=== PATIENT | female | born 1970 | race Caucasian/White ===

== ENCOUNTER 2025-04-07 11:44 | Outpatient (AMB) | payer OTHER, SELFPAY ==
--- NOTE | 2025-04-07 12:01 | A.OFFPC_ITS ---
Vital Signs 04/07/25 12:10 Height 5 ft 4 in Weight 311 lb BMI 53.4 BP 124/66 Blood Pressure Location Rt brachial Position Sitting Respiration 15 Pulse 81 Pulse Source Pulse Oximeter Temp 98.1 F Temp Source Oral Pulse Oximetry (%) 100 Intake Visit Reasons: [employer] to est care Intake Note: Pt is here today as a New Patient to est care concern on b/p was b/p med before and her wgt Allergies No Known Allergies Allergy (Verified 04/12/25 01:41) Medication List - Last Reconciled 04/12/25 by Brooke Patino MD No Known Home Meds Tobacco use date assessed: 04/07/25 Dental Screening Dental Screen Date: 04/07/25 Did you have a dental visit in the last 12 months?: Yes Did you have a dental problem in the last 6 months where you did not have access to dental care?: No Was dental information given to patient?: Patient has dentist HPI [employer] to est care HPI Details 55-year-old lady new to practice, here t o establish care with a PCP and for physical exam. History of COVID last year, has lost some of her sense of smell and taste. Complains of frequent hot flashes and mood swings. Has not had a menstrual cycle now for more than a year.. Overdue for her screening mammogram and cervical cancer screening. Has not yet had a colon cancer screening done. No family history of colon cancer [facility] Medical History (Updated 04/07/25 @ 13:00 by Brooke Patino MD) Morbid obesity Menopausal vasomotor syndrome History of COVID-19 Surgical History (Updated 04/07/25 @ 12:39 by Brooke Patino MD) History of reduction surgery of right breast Hx laparoscopic cholecystectomy Family History (Updated 04/07/25 @ 12:47 by Brooke Patino MD) Mother COPD (chronic obstructive pulmonary disease) Thyroid disorder Rheumatoid arthritis Maternal Grandfather Diabetes mellitus Maternal Grandmother Diabetes mellitus Social History Housing: Apartment Patient Tobacco Use Status: Former Tobacco user e-Cigarette/Vaping Use: Never Used service: No Current occupational status: employed Current occupational exposures/hazards: No Cognitive needs: No Hearing needs: No Vision needs: Yes Questionnaire PHQ-9 Over the last 2 weeks, how often have you been bothered by any of the following problems? 1. Little interest or pleasure in doing things: not at all 2. Feeling down, depressed, or hopeless: not at all 3. Trouble falling or staying asleep, or sleeping too much: not at all 4. Feeling tired or having little energy: several days 5. Poor appetite or overeating: several days 6. Feeling bad about yourself - or that you are a failure or have let yourself or your family down: not at all 7. Trouble concentrating on things, such as reading the newspaper or watching television: not at all 8. Moving or speaking so slowly that other people could have noticed. Or the opposite - being so fidgety or restless that you have been moving around a lot more than usual: not at all 9. Thoughts that you would be better off or of hurting yourself in some way: not at all Total score: 2 Depression Screening Interpretation: Negative Depression Screening Done: Yes 95182 - PHQ-9 Billing: Yes Source: Developed by Drs. Jr Westbrook, Otilia Lindsey, David Wong and colleagues, with an educational kristin from [employer]. Thrive Questionnaire Date Thrive assessed: 03/31/25 I am a: Patient What is your living situation today?: I have a steady place to live Within the past 12 months, did the food you bought not last and you didn't have the money to get more?: Never true Within the past 12 months, did you worry whether your food would run out before you got money to buy more?: Never true Do you have trouble paying for medicines?: No Do you have trouble getting transportation to medical appointments?: No Do you have trouble paying your heating and electricity bill?: No Do you have trouble taking care of your child, family member or friend?: No Do you have trouble with day-to-day activities such as bathing, preparing meals, shopping, managing finances, etc.?: No Are you currently unemployed and looking for a job?: No Are you interested in more education?: No Please select the resources that you would like help with: None Currently or been in a relationship where the following occur: No concerns reported THRIVE Score: 0 AUDIT C Alcohol Use Questionnaire (AUDIT-C) 1. How often do you have a drink containing alcohol?: Monthly or less 2. How many drinks containing alcohol do you have on a typical day when you are drinking?: 1 or 2 3. How often do you have six or more drinks on one occasion?: Never Total Score: 1 Score Reviewed/Action Taken: Yes SISI-7 AMB Questionnaire SISI-7 Date SISI - 7 assessed: 04/07/25 Feeling nervous, anxious, or on edge: 0 = Not at all Not being able to stop or control worryin = Not at all Worrying too much about different things: 0 = Not at all Trouble relaxin = Not at all Being so restless that it is hard to sit still: 0 = Not at all Becoming easily annoyed or irritable: 0 = Not at all Feeling afraid as if something awful might happen: 0 = Not at all Total SISI-7 score (0-4 normal; 5-9 mild; 10-14 moderate; 15-21 severe): 0 Source: Developed by Drs. Jr Westbrook, Otilia Lindsey, David Wong and colleagues, with an educational kristin from [employer]. SISI-7 Assessment Billing SISI-7 Assessment Tool: SISI-7 Assessment 97854 Review of Systems Const Denies body aches, Denies fatigue, Denies fever(s), Denies headache(s) and Denies weakness Eyes Denies change in vision, Denies eye discharge and Denies itchy eyes ENT Denies dizziness, Denies headache(s), Denies nasal congestion, Denies nasal discharge and Denies sore throat Card Denies chest pain, Denies lightheadedness, Denies palpitations and Denies dyspnea Resp Denies chest congestion, Denies cough, Denies dyspnea and Denies wheezing GI Denies abdominal pain, Denies change in bowel habits and Denies heartburn Denies hematuria, Denies urinary frequency, Denies dysuria and Denies urinary urgency Musc Reports no additional complaints Skin/Breast Denies breast pain, Denies breast mass, Denies lesions and Denies rash Neuro Denies dizziness, Denies headache(s) and Denies weakness Psych Reports no additional complaints Endo Denies fatigue, Denies polydipsia, Denies polyuria and Denies palpitations Grupo/Lymph Denies easy bruising Aller/Immun Denies itchy eyes, Denies seasonal rhinorrhea and Denies wheezing Physical exam (Primary Care) Vital Signs: Last Vital Signs Temp 98.1 F 04/07/25 12:10 Pulse 81 04/07/25 12:10 Resp 15 04/07/25 12:10 BP 124/66 04/07/25 12:10 Pulse Ox 100 04/07/25 12:10 BMI result Body Mass Index 53.4 Tobacco/Smoking Status: Tobacco use Status Tobacco use date assessed 04/07/25 04/07/25 12:14 Patient Tobacco Use Status Former Tobacco user 04/07/25 12:14 e-Cigarette/Vaping Use Never Used 04/07/25 12:14 PHQ-9: PHQ-9 Score PHQ-9: Total score 2 04/07/25 12:41 Depression Screening Interpretation: Negative Thrive Assessment: Date of Thrive Assessment Date Thrive assessed 03/31/25 04/07/25 12:01 Currently or been in a relationship where the following occur: No concerns reported Const General: no acute distress and alert Nutritional Appearance: obese morbidly obese Orientation/consciousness: patient oriented x3 HENMT Head: Yes normocephalic Ears: external ears normal, TM's normal bilaterally and EAC's normal General nose exam: Normal external nose present Face and sinus: Yes face symmetric Mouth: Normal oral and palatal mucosa present and moist mucous membranes Eyes General: appearance normal, both eyes and all related structures Eyelids: Yes eyelids normal Conjunctivae: conjunctivae normal Sclerae: sclerae normal Pupils: Equal, round and reactive pupils present EOM: EOMs intact bilaterally Neck Neck: Yes full ROM, Yes no lymphadenopathy and Yes supple Thyroid: Thyroid normal Resp Effort & Inspection: normal respiratory effort and able to speak in complete sentences Auscultation: clear to auscultation bilaterally Cardio Rate: regular rate Rhythm: regular rhythm Heart sounds: S1 normal heart sound present and S2 normal heart sound present GI Palpation (GI): Soft to palpation, nontender, no guarding and no masses Auscultation: normal bowel sounds General: Yes no CVA tenderness Back/Spine/Pelvis Back: no CVA tenderness and No back tenderness Skin General skin exam: no rashes or lesions noted Neuro General: patient oriented x3, gait normal, moves all extremities and no focal motor deficits Cranial nerves: Yes Equal, round and reactive pupils present Cognition (Neuro): normal cognition Gait exam (Neuro): Normal gait present Extrem General: Yes normal to inspection, Yes full ROM, Yes no joint enlargement, Yes no pedal edema and Yes normal gait Psych Appearance: grossly normal and well kempt Mental Status: mental status grossly normal Speech and movement: Normal speech and movement present Affect: normal affect Coding Level of Care Code New Pt Prev Care 40-64y(60243) Diagnoses Annual visit for general adult medical examination with abnormal findings Z00.01 Screening for malignant neoplasm of cervix Z12.4 Vasomotor symptoms due to menopause N95.1 Morbid obesity E66.01 Long COVID U09.9 Advance directive discussed with patient Z71.89 Additional Codes SISI-7 Assessment Billing - SISI-7 Assessment Tool: SISI-7 Assessment 36730 ([id number]) PHQ-9 - 72690 - PHQ-9 Billing: Yes ([id number]) Assessment & Plan Assessment & Plan (1) Annual visit for general adult medical examination with abnormal findings: Code(s): Z00.01 - Encounter for general adult medical examination with abnormal findings Plan: Will check appropriate labs. Recommended dental visit every 6 months and regular eye exams, at least every 2 years. Take adequate calcium in diet and vitamin-D 3 at 2000 IU per cap once a day, in addition to weight-bearing exercises to help maintain good muscle tone and weight control. Instructed to do self-breast exam, and recommended to get yearly mammogram, mammogram ordered. Referred to [facility] for routine Pap and pelvic exam. Cologuard ordered for colon cancer screening. Reminded to get Tdap and flu vaccine as well as COVID booster but patient does not want to get any vaccines on this visit. (2) Screening for malignant neoplasm of cervix: Code(s): Z12.4 - Encounter for screening for malignant neoplasm of cervix Plan: Referred to [facility] for routine Pap and pelvic exam (3) Vasomotor symptoms due to menopause: Code(s): N95.1 - Menopausal and female climacteric states Category: Medical Plan: She experiences significant hot flashes and sleep disturbances. Hormone levels will be checked to confirm menopause status, and low-dose hormone therapy may be considered if symptoms are severe, with a discussion of associated risks (4) Morbid obesity: Code(s): E66.01 - Morbid (severe) obesity due to excess calories Category: Medical Plan: Recommended focusing on improving health instead of dieting. Mediterranean diet is a healthy diet that helps, limit food high in fat, sugar, and calories. Eat slowly, pay attention to portion sizes, plan your meals ahead of time, referral to ferryboat operator ordered. start regular physical activity, at least 150 minutes of moderate intensity exercise, or 90 minutes per week of vigorous exercise. (5) Long COVID: Code(s): U09.9 - Post COVID-19 condition, unspecified Plan: The patient has experienced loss of taste and smell since a COVID-19 infection in August 2023. No specific treatment is available, and the prognosis for recovery of these senses remains uncertain. (6) Advance directive discussed with patient: Code(s): Z71.89 - Other specified counseling Plan: Initiated the conversation about Advanced Directives. Advanced Directives help patients prepare for current and future decisions about their medical treatment and place of care. Discussed with patient that it is a process where a patients current condition and prognosis are reviewed, their wishes for information regarding their illness are elicited, and likely medical dilemmas are presented and options discussed. Healthcare proxy form completed today. The form can be amended as needed, reviewed yearly and make changes as needed Orders: Orders Basic Metabolic Panel Fasting 04/10/25 N95.1 - Menopausal and female climacteric states, Z00.01 - Encounter for general adult medical examination with abnormal findings, Z13.1 - Encounter for screening for diabetes mellitus, Z13.220 - Encounter for screening for lipoid disorders, Z83.49 - Family history of other endocrine, nutritional and metabolic diseases Aspartate Amino Transferase 04/10/25 N95.1 - Menopausal and female climacteric states, Z00.01 - Encounter for general adult medical examination with abnormal findings, Z13.1 - Encounter for screening for diabetes mellitus, Z13.220 - Encounter for screening for lipoid disorders, Z83.49 - Family history of other endocrine, nutritional and metabolic diseases Complete Blood Count Auto Diff 04/10/25 N95.1 - Menopausal and female climacteric states, Z00.01 - Encounter for general adult medical examination with abnormal findings, Z13.1 - Encounter for screening for diabetes mellitus, Z13.220 - Encounter for screening for lipoid disorders, Z83.49 - Family history of other endocrine, nutritional and metabolic diseases Vitamin D 25-OH Total 04/10/25 N95.1 - Menopausal and female climacteric states, Z00.01 - Encounter for general adult medical examination with abnormal findings, Z13.1 - Encounter for screening for diabetes mellitus, Z13.220 - Encounter for screening for lipoid disorders, Z83.49 - Family history of other endocrine, nutritional and metabolic diseases TSH reflex Free T4 04/10/25 N95.1 - Menopausal and female climacteric states, Z00.01 - Encounter for general adult medical examination with abnormal findings, Z13.1 - Encounter for screening for diabetes mellitus, Z13.220 - Encounter for screening for lipoid disorders, Z83.49 - Family history of other endocrine, nutritional and metabolic diseases Estradiol Ultra Sensitive 04/10/25 N95.1 - Menopausal and female climacteric states MM tomosynthesis screening BI 04/07/25 Z12.31 - Encounter for screening mammogram for malignant neoplasm of breast Alanine Aminotransferase 04/10/25 N95.1 - Menopausal and female climacteric states, Z00.01 - Encounter for general adult medical examination with abnormal findings, Z13.1 - Encounter for screening for diabetes mellitus, Z13.220 - Encounter for screening for lipoid disorders, Z83.49 - Family history of other endocrine, nutritional and metabolic diseases Lipid Panel 04/10/25 N95.1 - Menopausal and female climacteric states, Z00.01 - Encounter for general adult medical examination with abnormal findings, Z13.1 - Encounter for screening for diabetes mellitus, Z13.220 - Encounter for screening for lipoid disorders, Z83.49 - Family history of other endocrine, nutritional and metabolic diseases Follicle Stimulating Hormone 04/10/25 N95.1 - Menopausal and female climacteric states Referrals Cologuard Test Z12.11 - Encounter for screening for malignant neoplasm of colon, Z12.12 - Encounter for screening for malignant neoplasm of rectum [employer] Referral Z12.4 - Encounter for screening for malignant neoplasm of cervix
[2025-04-07 12:10] VITALS: BP 124/66; PULSE 81; RESP 15; TEMP 36.7; O2SAT 100; BMI 53.4
== END 2025-04-07 13:08 | disposition home or self-care (01) ==
LOC: HO.HMCC 11:45
PROVIDERS: Visit Provider Internal Medicine
DX: Z00.01 Encounter for general adult medical examination with abnormal findings (principal); E66.01 Morbid (severe) obesity due to excess calories; Z68.43 Body mass index [BMI] 50.0-59.9, adult; N95.1 Menopausal and female climacteric states; U09.9 Post COVID-19 condition, unspecified; Z71.89 Other specified counseling

== ENCOUNTER → 2025-04-07 11:44 | Outpatient (BNVA) | payer OTHER, SELFPAY | PROVIDERS: Visit Provider Internal Medicine | DX: Z00.01 Encounter for general adult medical examination with abnormal findings (principal); N95.1 Menopausal and female climacteric states; E66.01 Morbid (severe) obesity due to excess calories; U09.9 Post COVID-19 condition, unspecified; Z71.89 Other specified counseling; Z68.43 Body mass index [BMI] 50.0-59.9, adult | CPT/HCPCS: 96127; 99386 ==

== ENCOUNTER 2025-04-10 06:35 | Outpatient (REF) | payer OTHER, SELFPAY ==
[2025-04-10 11:10] LABS: MANUAL DIFF FLAG NO
[2025-04-10 11:17] LABS: Hematocrit 42.7 % (37.0-47.0); Hemoglobin 13.2 g/dl (12.0-16.0); Imm Gran Abs Auto 0.01 X10*3/uL (0.00-0.03); Imm Gran Pct Auto 0.2 % (0.0-0.4); Lymphocytes Absolute Auto 2.0 X10*3/uL (1.2-4.9); Mean Corpuscular HGB Conc 30.9 g/dl (31.0-35.0); Mean Corpuscular Hemoglobin 29.3 pg (27.0-33.0); Mean Corpuscular Volume 94.7 fL (80.0-98.0); NRBC Abs Auto 0.000 X10*3/uL (0.0-0.012); NRBC Pct Auto 0.0 /100WBC (0.0-0.2); Platelet Count 251 X10*3/uL (160-400); Red Blood Count 4.51 X10*6/uL (4.20-5.50); White Blood Count 6.2 X10*3/uL (4.8-10.8)
[2025-04-10 11:59] LABS: Alanine Aminotransferase 21 U/L (0-31); Anion Gap 13 (12-20); Aspartate Amino Transferase 38 U/L (5-31); Blood Urea Nitrogen 15 mg/dL (9-16); Calcium 9.4 mg/dL (8.4-10.2); Carbon Dioxide 26 mmol/L (22-29); Chloride 107 mmol/L (96-108); Cholesterol 202 mg/dL (<200); Estimated Glomerular Filt Rate > 60; HDL Cholesterol 42 mg/dL (>40); Potassium 4.5 mmol/L (3.3-5.1); Sodium 141 mmol/L (135-145); Triglycerides 293 mg/dL (<150)
[2025-04-10 12:35] LABS: Free T4 (Free Thyroxine) 0.94 ng/dL (0.71-1.85)
[2025-04-12 13:04] LABS: Follicle Stimulating Hormone 56.0 mIU/mL
[2025-04-22 23:23] LABS: Estradiol Ultra Sensitive <4 pg/mL
== END 2025-04-10 06:36 | disposition home or self-care (01) ==
LOC: HO.HMGCLDS 06:35
PROVIDERS: PCP Internal Medicine; Visit Provider Internal Medicine
DX: Z00.01 Encounter for general adult medical examination with abnormal findings (principal); Z13.220 Encounter for screening for lipoid disorders; Z13.1 Encounter for screening for diabetes mellitus; N95.1 Menopausal and female climacteric states; Z83.49 Family history of other endocrine, nutritional and metabolic diseases
CPT/HCPCS: 36415; 80048; 80061; 82306; 82670; 83001; 84439; 84443; 84450; 84460; 85025

== ENCOUNTER → 2025-05-14 15:19 | Outpatient (BNVA) | payer OTHER, SELFPAY | PROVIDERS: PCP Internal Medicine | DX: R73.01 Impaired fasting glucose (principal); E66.01 Morbid (severe) obesity due to excess calories | CPT/HCPCS: 99211 ==